=== PATIENT | male | born 1975 | race African-American/Black ===

== ENCOUNTER 2016-12-04 19:05 | Emergency (ER) | payer SELFPAY ==
[~2016-12-04] VITALS: Ht 188 cm; Wt 108.9 kg
[~2016-12-04 19:05] MED LIST: BUDE10.2 IH; CLON1TAB3 PO; HYDR-971 PO; INSU100I17 SQ; INSU100V8 SQ; LISI-338 PO; METF500T4 PO; PRAV40TA2 PO; SULF1TAB24 PO
[2016-12-04 20:04] LABS: BASO % 1 % (0-3); EOS % 1 % (0-3); HEMATOCRIT 51.3 % (39.0-53.0); HEMOGLOBIN 16.8 g/dL (13.0-17.5); LYMPH # 2.8 x10^3/uL (1.0-4.8); LYMPH % 28 % (24-48); MEAN CORPUSCULAR HEMOGLOBIN 31 pg (25-35); MEAN CORPUSCULAR HGB CONC 33 g/dL (31-37); MEAN CORPUSCULAR VOLUME 95 fL (79-100); MONO % 8 % (0-9); NEUT % 63 % (31-73); PLATELET COUNT 244 x10^3/uL (140-400); RED BLOOD COUNT 5.38 x10^6/uL (4.30-5.70); RED CELL DISTRIBUTION WIDTH 14.2 % (11.5-14.5)
[2016-12-04 20:18] LABS: CALCIUM 9.1 mg/dL (8.5-10.1); GFR 98.7; POTASSIUM 4.2 mmol/L (3.5-5.1)
[2016-12-04 20:24] VITALS: BP 141/96
--- NOTE | 2016-12-04 20:24 | PHYS DOC ---
Past Medical History Past Medical History: Diabetes-Type II, High Cholesterol, Hypertension Additional Past Medical Histor: uncontrolled HTN Past Surgical History: Other Additional Past Surgical Histo: CYST REMOVAL Alcohol Use: Heavy Drug Use: None Adult General Chief Complaint Chief Complaint: MULTIPLE COMPLAINTS [facility] HPI Patient is a 41 year old male who presents with concern for his general well- being. He has been more fatigued than usual over the past months to year. States he has changed his diet in an attempt to lose weight and get healthier, and has intentional weight loss over this time period. He has not followed up with routine clinic due to income issues, but he plans to make an appointment soon. He notes sometimes having RUQ/right lower chest pain; last time was more than 2 days ago. He has no specific complaints at this time. He denies dyspnea, palpitations, leg pain or swelling, cough, fever or chills, nausea or vomiting, abdominal pain, diarrhea, constipation, dysuria, hematuria, numbness, tingling, focal weakness, headache, vision changes, dizziness. Review of Systems Review of Systems Constitutional: Denies fever or chills [] Eyes: Denies change in visual acuity, redness, or eye pain [] HENT: Denies nasal congestion or sore throat [] Respiratory: Denies cough or shortness of breath [] Cardiovascular: No additional information not addressed in HPI [] GI: Denies abdominal pain, nausea, vomiting, bloody stools or diarrhea [] : Denies dysuria or hematuria [] Musculoskeletal: Denies back pain or joint pain [] Integument: Denies rash or skin lesions [] Neurologic: Denies headache, focal weakness or sensory changes [] Endocrine: Denies polyuria or polydipsia [] Allergies Allergies Allergies Coded Allergies Type Severity Reaction Last Updated Verified No Known Drug Allergies 08/16/13 No Physical Exam Physical Exam Constitutional: Well developed, well nourished, no acute distress, non-toxic appearance. [] HENT: Normocephalic, atraumatic, bilateral external ears normal, oropharynx moist, nose normal. [] Eyes: PERRLA, EOMI. [] Neck: Normal range of motion, supple. [] Cardiovascular:Heart rate regular rhythm [] Lungs & Thorax: Bilateral breath sounds clear to auscultation [] Abdomen: Bowel sounds normal, soft, no tenderness. [] Skin: Warm, dry, no erythema, no rash. [] Back: Normal range of motion. [] Extremities: No tenderness, ROM intact, no edema. [] Neurologic: Alert and oriented X 3, normal motor function, normal sensory function, no focal deficits noted, cranial nerves II through XII intact. [] Psychologic: Affect normal, judgement normal, mood normal. [] Current Patient Data Vital Signs Vital Signs Date Time Temp Pulse Resp B/P (MAP) Pulse Ox O2 Delivery O2 Flow Rate FiO2 12/04/16 19:25 98.2 83 20 141/97 (112) 100 Room Air 98.2 Lab Values Laboratory Tests Test 12/04/16 19:27 White Blood Count 10.0 x10^3/uL (4.0-11.0) Red Blood Count 5.38 x10^6/uL (4.30-5.70) Hemoglobin 16.8 g/dL (13.0-17.5) Hematocrit 51.3 % (39.0-53.0) Mean Corpuscular Volume 95 fL (79-100) Mean Corpuscular Hemoglobin 31 pg (25-35) Mean Corpuscular Hemoglobin Concent 33 g/dL (31-37) Red Cell Distribution Width 14.2 % (11.5-14.5) Platelet Count 244 x10^3/uL (140-400) Neutrophils (%) (Auto) 63 % (31-73) Lymphocytes (%) (Auto) 28 % (24-48) Monocytes (%) (Auto) 8 % (0-9) Eosinophils (%) (Auto) 1 % (0-3) Basophils (%) (Auto) 1 % (0-3) Neutrophils # (Auto) 6.3 x10^3uL (1.8-7.7) Lymphocytes # (Auto) 2.8 x10^3/uL (1.0-4.8) Monocytes # (Auto) 0.8 x10^3/uL (0.0-1.1) Eosinophils # (Auto) 0.1 x10^3/uL (0.0-0.7) Basophils # (Auto) 0.0 x10^3/uL (0.0-0.2) Sodium Level 135 mmol/L (136-145) L Potassium Level 4.2 mmol/L (3.5-5.1) Chloride Level 99 mmol/L (98-107) Carbon Dioxide Level 27 mmol/L (21-32) Anion Gap 9 (6-14) Blood Urea Nitrogen 14 mg/dL (8-26) Creatinine 1.0 mg/dL (0.7-1.3) Estimated GFR (Cockcroft-Gault) 98.7 BUN/Creatinine Ratio 14 (6-20) Glucose Level 304 mg/dL (70-99) H Calcium Level 9.1 mg/dL (8.5-10.1) Total Bilirubin 0.4 mg/dL (0.2-1.0) Aspartate Amino Transferase (AST) 13 U/L (15-37) L Alanine Aminotransferase (ALT) 16 U/L (16-63) Alkaline Phosphatase 90 U/L (46-116) Troponin I Quantitative < 0.017 ng/mL (0.000-0.055) Total Protein 8.0 g/dL (6.4-8.2) Albumin 3.6 g/dL (3.4-5.0) Albumin/Globulin Ratio 0.8 (1.0-1.7) L Thyroid Stimulating Hormone (TSH) 0.695 uIU/mL (0.358-3.74) Laboratory Tests 12/04/16 19:27 Laboratory Tests 12/04/16 19:27 EKG EKG EKG as interpreted by me as normal sinus rhythm, rate 95, no ST-T changes, normal intervals, no ectopy Course & Med Decision Making Course & Med Decision Making Pertinent Labs and Imaging studies reviewed. (See chart for details) Workup is unremarkable other than hyperglycemia due to diabetes. Recommend follow-up with primary care. Return precautions given. He understands and agrees with plan. Dragon Disclaimer Dragon Disclaimer This electronic medical record was generated, in whole or in part, using a voice recognition dictation system. Departure Departure Impression: Primary Impression: Fatigue Additional Impression: Hyperglycemia due to type 2 diabetes mellitus Disposition: 01 HOME, SELF-CARE Condition: STABLE Referrals: NO PCP (PCP) Patient Instructions: Fatigue Additional Instructions: Follow-up with your primary care doctor. Return for any concerns. Problem Qualifiers Primary Impression: Fatigue Fatigue type: unspecified Qualified Codes: R53.83 - Other fatigue Additional Impression: Hyperglycemia due to type 2 diabetes mellitus Diabetes mellitus terminologist insulin use: with group home use Qualified Codes: E11.65 - Type 2 diabetes mellitus with hyperglycemia; Z79.4 - [facility] ( current) use of insulin Aiden GUTIERREZ MD Dec 04, 2016 20:24
[2016-12-04 20:25] LABS: ALBUMIN 3.6 g/dL (3.4-5.0); ALBUMIN/GLOBULIN RATIO 0.8 (1.0-1.7); TOTAL BILIRUBIN 0.4 mg/dL (0.2-1.0)
--- NOTE | 2016-12-05 07:17 | EKG ---
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
== END 2016-12-04 20:48 | disposition home or self-care (01) ==
LOC: ER 19:05
DX: R53.83 Other fatigue (principal); E11.65 Type 2 diabetes mellitus with hyperglycemia; E78.00 Pure hypercholesterolemia, unspecified; I10 Essential (primary) hypertension; F10.10 Alcohol abuse, uncomplicated; Z79.4 Long term (current) use of insulin
CPT/HCPCS: 36415; 80053; 82962; 84443; 84484; 85027; 93005; 99285-25

== ENCOUNTER 2018-05-28 08:03 | Emergency (ER) | payer OTHER ==
[~2018-05-28] VITALS: Ht 188 cm; Wt 98.4 kg
[~2018-05-28 08:03] MED LIST changes: +CLON1TAB11 PO; -CLON1TAB3 PO; +HYDR-3164 PO; -HYDR-971 PO; +METF500T16 PO; -METF500T4 PO
[2018-05-28 08:20] VITALS: BP 188/118
--- NOTE | 2018-05-28 09:16 | RAD ---
Right HAND, VIEWS 3 Indication: PAIN IN 3RD DIGIT AFTER FALL LAST NIGHT
PATIENT STATES INJURED RIGHT HAND 5 YEARS AGO AND 3RD DIGIT HAS BEEN DEFORMED EVER SINCE Findings: There is no acute fracture or dislocation. Old healed fracture deformity transverse at the distal neck of the third proximal phalanx. There is no bony erosion. Mineralization is normal. There is no radiographically apparent soft tissue swelling or radiopaque foreign body. IMPRESSION: No acute fracture. Electronically signed by: Sanya Fritz MD (05/28/2018 9:12 AM) [id number]
--- NOTE | 2018-05-28 09:20 | PHYS DOC ---
Past Medical History Past Medical History: Diabetes-Type II, High Cholesterol, Hypertension Additional Past Medical Histor: uncontrolled HTN Past Surgical History: Other Additional Past Surgical Histo: CYST REMOVAL Alcohol Use: Heavy Drug Use: None Adult General Chief Complaint Chief Complaint: FINGER INJURY HPI HPI Patient is a 43 year old [f__sex] who presents with [] Review of Systems Review of Systems Constitutional: Denies fever or chills [] Eyes: Denies change in visual acuity, redness, or eye pain [] HENT: Denies nasal congestion or sore throat [] Respiratory: Denies cough or shortness of breath [] Cardiovascular: No additional information not addressed in HPI [] GI: Denies abdominal pain, nausea, vomiting, bloody stools or diarrhea [] : Denies dysuria or hematuria [] Musculoskeletal: Denies back pain or joint pain [] Integument: Denies rash or skin lesions [] Neurologic: Denies headache, focal weakness or sensory changes [] Endocrine: Denies polyuria or polydipsia [] All other systems were reviewed and found to be within normal limits, except as documented in this note. Allergies Allergies Allergies Coded Allergies Type Severity Reaction Last Updated Verified No Known Drug Allergies 08/16/13 No Physical Exam Physical Exam Constitutional: Well developed, well nourished, no acute distress, non-toxic appearance. [] HENT: Normocephalic, atraumatic, bilateral external ears normal, oropharynx moist, no oral exudates, nose normal. [] Eyes: PERRLA, EOMI, conjunctiva normal, no discharge. [] Neck: Normal range of motion, no tenderness, supple, no stridor. [] Cardiovascular:Heart rate regular rhythm, no murmur [] Lungs & Thorax: Bilateral breath sounds clear to auscultation [] Abdomen: Bowel sounds normal, soft, no tenderness, no masses, no pulsatile masses. [] Skin: Warm, dry, no erythema, no rash. [] Back: No tenderness, no CVA tenderness. [] Extremities: No tenderness, no cyanosis, no clubbing, ROM intact, no edema. [] Neurologic: Alert and oriented X 3, normal motor function, normal sensory function, no focal deficits noted. [] Psychologic: Affect normal, judgement normal, mood normal. 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 PHYSICIAN: KAMILA CERVANTES APRN REASON: injured 3rd digit in fall last night, has old injury to that finger PROCEDURE: HAND RIGHT 3V Right HAND, VIEWS 3 Indication: PAIN IN 3RD DIGIT AFTER FALL LAST NIGHT
PATIENT STATES INJURED RIGHT HAND 5 YEARS AGO AND 3RD DIGIT HAS BEEN DEFORMED EVER SINCE Findings: There is no acute fracture or dislocation. Old healed fracture deformity transverse at the distal neck of the third proximal phalanx. There is no bony erosion. Mineralization is normal. There is no radiographically apparent soft tissue swelling or radiopaque foreign body. IMPRESSION: No acute fracture. Electronically signed by: Sanya Fritz MD (05/28/2018 9:12 AM) [id number] DICTATED and SIGNED BY: SANYA FRITZ MD DATE: 05/28/18908 Course & Med Decision Making Course & Med Decision Making Pertinent Labs and Imaging studies reviewed. (See chart for details) [] Dragon Disclaimer Dragon Disclaimer This electronic medical record was generated, in whole or in part, using a voice recognition dictation system. Departure Departure Impression: Primary Impression: Contusion Disposition: 01 HOME, SELF-CARE Condition: STABLE Referrals: TRISTEN MRAIE MD (PCP) CAL GUILLEN II, MD Patient Instructions: Contusion Additional Instructions: Use the finger splint for comfort. You may take ibuprofen or Tylenol for pain. There is a hand specialist that you can follow-up with at [facility]. Otherwise follow-up with your primary care provider. KAMILA CERVANTES APRN May 28, 2018 09:20
== END 2018-05-28 09:41 | disposition home or self-care (01) ==
LOC: ER 08:03
DX: S60.031A Contusion of right middle finger without damage to nail, initial encounter (principal); E11.9 Type 2 diabetes mellitus without complications; E78.00 Pure hypercholesterolemia, unspecified; I10 Essential (primary) hypertension; F10.20 Alcohol dependence, uncomplicated; Y90.9 Presence of alcohol in blood, level not specified; W18.39XA Other fall on same level, initial encounter; Y93.89 Activity, other specified; Y92.89 Other specified places as the place of occurrence of the external cause; Y99.8 Other external cause status
CPT/HCPCS: 29130; 73130; 99284-25

== ENCOUNTER 2019-01-04 03:58 | Emergency (ER) | payer OTHER ==
[~2019-01-04] VITALS: Ht 188 cm; Wt 98.4 kg
[2019-01-04 04:05] VITALS: BP 173/120
--- NOTE | 2019-01-04 04:42 | PHYS DOC ---
Past Medical History Past Medical History: Diabetes-Type II, High Cholesterol, Hypertension Additional Past Medical Histor: uncontrolled HTN Past Surgical History: Other Additional Past Surgical Histo: CYST REMOVAL Alcohol Use: Heavy Drug Use: None Adult General Chief Complaint Chief Complaint: LOWER BACK PAIN OR INJURY HPI HPI Patient is a 43 year old [male] who presents with [lower back pain]. Pt reports falling backwards onto a bed of rocks while fishing earlier in the day. He states his initial pain was able to be "shaken off" but then it slowly started to get worse throughout the day. He rates the pain an 8/10 and describes it as a sharp, hard pain without radiation that worsens when going to sit down, standing from sitting down, or sitting down too long. 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 He denies bladder or bowel incontinence, numbness/tingling/burning of the lower extremities, or saddle anesthesia. He previously injured this same area on his back less than a year ago and believes he has just worsened said area. Review of Systems Review of Systems Constitutional: Denies fever or chills Eyes: Denies change in visual acuity, redness, or eye pain HENT: Denies nasal congestion or sore throat Respiratory: Denies cough or shortness of breath Cardiovascular: No additional information not addressed in HPI GI: Denies abdominal pain, nausea, vomiting, bloody stools or diarrhea : Denies dysuria or hematuria Musculoskeletal: [Admits lower back pain] Integument: Denies rash or skin lesions Neurologic: Denies headache, focal weakness or sensory changes Endocrine: Denies polyuria or polydipsia All other systems were reviewed and found to be within normal limits, except as documented in this note. Current Medications Current Medications Current Medications Medications (Trade) Dose Ordered Sig/Eldon Start Time Stop Time Status Last Admin Dose Admin Ketorolac Tromethamine (Toradol 30mg Vial) 30 mg 1X ONCE 01/04/19 05:15 01/04/19 05:23 DC 01/04/19 05:15 30 MG Allergies Allergies Allergies Coded Allergies Type Severity Reaction Last Updated Verified No Known Drug Allergies 08/16/13 No Physical Exam Physical Exam Constitutional: Well developed, well nourished, no acute distress, non-toxic appearance. HENT: Normocephalic, atraumatic, bilateral external ears normal, oropharynx moist, no oral exudates, nose normal. Eyes: PERRLA, EOMI, conjunctiva normal, no discharge. Neck: Normal range of motion, no tenderness, supple, no stridor. Cardiovascular:Heart rate regular rhythm, no murmur Lungs & Thorax: Bilateral breath sounds clear to auscultation Abdomen: Bowel sounds normal, soft, no tenderness, no masses, no pulsatile masses. Skin: Warm, dry, no erythema, no rash. Back: [Tender to deep palpation in the left paraspinal musculature from L4-S2 ] laterally no focal midline ttp Extremities: No tenderness, no cyanosis, no clubbing, ROM intact, no edema. Neurologic: Alert and oriented X 3, normal motor function, normal sensory function, no focal deficits noted. Psychologic: Affect normal, judgement normal, mood normal. Current Patient Data Vital Signs Vital Signs Date Time Temp Pulse Resp B/P (MAP) Pulse Ox O2 Delivery O2 Flow Rate FiO2 01/04/19 04:05 98.1 91 18 173/120 (137) 98 Room Air 98.1 EKG EKG [] Radiology/Procedures Radiology/Procedures [] Impressions: xray negative Course & Med Decision Making Course & Med Decision Making Pertinent Labs and Imaging studies reviewed. (See chart for details) [Pt is a 43 yo M presenting with worsening low back pain after falling backwards onto a bed of rocks while fishing. He reports 8/10 non-radiating pain described as a "sharp, hard" pain. 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 An X-ray of the lumbosacral region was ordered to r/o an acute fracture. Pt denies saddle anesthesia, bowel/bladder incontinence, or numbness/tingling in the lower extremities. xray neg reassurance given toradol im ] Dragon Disclaimer Dragon Disclaimer This electronic medical record was generated, in whole or in part, using a voice recognition dictation system. Departure Departure Impression: Primary Impression: Back pain Disposition: HOME, SELF-CARE Condition: IMPROVED Referrals: TRISTEN MARIE MD (PCP) KEIRA RAMIREZ MD Jan 04, 2019 04:42
[2019-01-04] MEDS ORDERED: KETOROLAC 30 MG/ML VIAL. IM ONE (05:15)
--- NOTE | 2019-01-04 05:21 | RAD ---
AP and lateral lumbar spine radiographs 01/04/2019 CLINICAL HISTORY: Low back pain post fall. AP and 2 lateral digital radiographs of the lumbar spine were obtained. Very mild S-shaped curvature of the thoracolumbar spine is seen. No fracture or subluxation of the lumbar vertebrae is noted. Degenerative changes are seen involving the lumbar disc spaces consisting of vertebral endplate sclerosis and minimal to mild anterior vertebral body osteophyte formation. IMPRESSION: No fracture or subluxation of the lumbar vertebrae is seen. Electronically signed by: Oscar Bundy MD (01/04/2019 5:18 AM) [id number]
== END 2019-01-04 05:46 | disposition home or self-care (01) ==
LOC: ER 03:58
DX: M54.5 Low back pain (principal); E78.00 Pure hypercholesterolemia, unspecified; I10 Essential (primary) hypertension; E11.9 Type 2 diabetes mellitus without complications
CPT/HCPCS: 72100; 96372; 99284; J1885